=== PATIENT | male | born 1980 | race Caucasian/White ===

== ENCOUNTER 2018-09-16 11:19 | Outpatient (CLI) | payer BC ==
--- NOTE | 2018-09-16 12:15 | RAD ---
RIGHT KNEE 3 VIEWS: Date: 09/16/18 HISTORY: Knee pain. FINDINGS: There are no signs of fracture, dislocation, or joint effusion. IMPRESSION: Negative right knee. POS: CARLOS MANUEL
== END 2018-09-16 11:20 | disposition home or self-care (01) ==
LOC: BICRAD 11:19
PROVIDERS: ATTEND Family Medicine
DX: M25.561 Pain in right knee (principal)
CPT/HCPCS: 36415; 80053; 80061; 83036; 84439; 84443; 84550; 85025

== ENCOUNTER 2018-12-05 16:33 | Inpatient (IN) | payer BC ==
[2018-12-05] MEDS ORDERED: Iopamidol 370 76% 50 ML VIAL FS ONE (17:10)
[2018-12-05] MEDS ORDERED: ISOVUE-370 76%-LOCM 1 ML ONE (17:10)
[2018-12-05 17:16] LABS: #Basophils 0.1 thou/uL (0.0-0.2); #Eosinphils 0.2 thou/uL (0.0-0.7); #Lymphocytes 2.4 thou/uL (1.20-3.40); #Monocytes 0.7 thou/uL (0.11-0.59); #Neutrophils 10.4 thou/uL (1.40-6.50); %Basophils 0.5 % (0.0-1.0); %Eosinophils 1.3 % (0.0-10.0); %Lymphocytes 17.5 % (21.0-51.0); %Monocytes 4.9 % (0.0-10.0); %Neutrophils 75.8 % (42.0-75.0); Hemoglobin 14.9 g/dL (14.0-18.0); Mean Corpuscular HGB CONC 34.4 g/dL (32.0-36.0); Mean Corpuscular Hemoglobin 31.6 pg (27.0-31.0); Mean Corpuscular Volume 91.9 fL (78.0-98.0); Mean Platelet Volume 6.9 fL (7.4-10.4); Platelet Count 303 thou/uL (130-400); RBC Distribution Width 12.2 % (11.5-14.5); Red Blood Cell (RBC) Count 4.73 mill/uL (4.70-6.10); White Blood Cell (WBC) Count 13.8 thou/uL (4.8-10.8)
[2018-12-05 17:40] LABS: ALT (SGPT) 13 U/L (8-55); AST (SGOT) 23 U/L (5-34); Albumin 4.1 g/dL (3.5-5.0); Alkaline Phosphatase 61 U/L (40-150); Anion Gap 12 mmol/L (10-20); BUN (Urea Nitrogen) 11 mg/dL (8.9-20.6); Bilirubin, Total 0.8 mg/dL (0.2-1.2); Calc. Creatinine Clearance 0 mL/min (70-130); Calcium 10.2 mg/dL (7.8-10.44); Carbon Dioxide 28 mmol/L (22-29); Chloride 103 mmol/L (98-107); Estimated GFR-MDRD Greater than 90; Globulin 3.5 g/dL (2.4-3.5); Glucose 112 mg/dL (70-105); Lipase 16 U/L (8-78); Potassium 4.7 mmol/L (3.5-5.1); Protein, Total 7.6 g/dL (6.0-8.3); Sodium 138 mmol/L (136-145)
[2018-12-05 19:43] LABS: Bilirubin Negative (Negative); Blood, Urine Negative (Negative); Clarity CLEAR (Clear); Glucose, Urine (Dipstick) Negative (Negative); Leukocyte Negative (Negative); Nitrite Negative (Negative); Protein, Urine (Dipstick) Negative (Neg-Trace); Specific Gravity, Urine 1.019 (1.002-1.036); Urobilinogen 0.2 mg/dL (0.2-1.0)
[2018-12-05] MEDS ORDERED: Dicyclomine 20 MG TAB ONE (21:02)
[2018-12-05] MEDS ORDERED: Pantoprazole 40 MG VIAL ONE (21:02)
[2018-12-05] MEDS ORDERED: Ondansetron PF 4 MG/2 ML Vial ONE (21:02)
[2018-12-05] MEDS ORDERED: Metoclopramide HCl 10 MG/2 ML VIAL ONE (21:02)
--- NOTE | 2018-12-05 22:55 | CT ---
CT Abdomen Pelvis W Con History: [Abdominal pain] Comparison: CT abdomen pelvis November 2016 Findings: Lung bases are clear. No pericardial effusion. Spleen and pancreas unremarkable. Liver and gallbladder are unremarkable. There appears to be a polyp of the second portion of the duodenum axial image 38. There is a large ventral hernia containing both large bowel and small bowel. There is fluid within th e herniated sac. Small bowel proximal to this is dilated up to 3.5 cm. There is a diverticulum of the right lateral wall of the urinary bladder. No retroperitoneal adenopat hy. Kidneys unremarkable. 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 Impression: Large and small bowel containing ventral hernia with a large hiatus causing mild small talat wel obstruction. Surgical consultation advised. Small volume fluid within the large herniated sac.
[2018-12-06 00:09] LABS: PTT 28.4 SEC (22.9-36.1); Prothrombin Time 13.6 SEC (12.0-14.7)
[2018-12-06] MEDS ORDERED: Ondansetron PF 4 MG/2 ML Vial IVP PRN ×2 (04:03→19:33)
[2018-12-06] MEDS ORDERED: Acetaminophen 325 MG TAB PO PRN (04:03)
[2018-12-06] MEDS ORDERED: Ondansetron ODT 4 MG TAB SL PRN (04:03)
[2018-12-06 05:18] VITALS: BMI 52.9
[2018-12-06] MEDS: Sodium Chloride 0.9% 1,000 ML IV SCH ×2 (05:38→18:16)
[2018-12-06] MEDS ORDERED: traMADol HCl 50 MG TAB PO PRN ×2 (08:45)
--- NOTE | 2018-12-06 09:44 | CON ---
DATE OF CONSULTATION: 12/06/2018 CHIEF COMPLAINT: Small bowel obstruction. HISTORY OF PRESENT ILLNESS: This is a 38-year-old male with history of pulmonary embolism. He is now on Xarelto daily, who presents with a history of abdominal cramping, not associated with nausea or vomiting. He had mild anorexia. He has had bowel movements including last night after oral contrast for CAT scan. His cramping has resolved. He has a history of laparoscopic umbilical hernia repair 7 or 8 years ago in [place], [place], that recurred almost immediately. He now presents with large recurrent ventral hernia in the setting of CT scan showing partial obstruction and bowel and colon up in this hernia. The patient now describes 2 days of cramping pain, although it has completely resolved. He has had bowel movement this morning. He is hungry. No nausea. PAST MEDICAL HISTORY: Pulmonary embolism. PAST SURGICAL HISTORY: As above. MEDICATIONS: Medicines taken daily, Xarelto. ALLERGIES: CODEINE. SOCIAL HISTORY: No smoking, alcohol, or other drugs. He works at [employer]. REVIEW OF SYSTEMS: Ten-system review of systems otherwise negative unless described above. PHYSICAL EXAMINATION: VITAL SIGNS: Pulse 69, respirations 18, temperature 97.8, and blood pressure 113/76. GENERAL: Alert and oriented, in no acute distress. HEENT: Sclerae anicteric. Oropharynx clear. NECK: No lymphadenopathy. CHEST: Clear. HEART: Regular rate and rhythm. ABDOMEN: Soft. He has large incisional hernia with loss of domain in the umbilical region. He has a large pannus as his abdomen is quite protuberant and the hernias within this. LABORATORY DATA: White blood cell count was 13 last night and hemoglobin 14. Sodium 138, creatinine 0.82, and potassium 4.7. IMAGING STUDIES: CT scan shows likely chronic changes from large and small bowel in this ventral hernia. ASSESSMENT: 1. Incisional/ventral hernia recurrence. 2. Morbid obesity. 3. History of pulmonary embolism on Xarelto. PLAN: I do not think this represents necessarily small bowel obstruction. He is clinically not acting like that. I recommend clear liquids today. If he tolerates that, he could probably go home tomorrow. I would recommend he follow up with me as an outpatient in a few weeks to discuss elective hernia repair, would not do it now in the setting of this dilated small intestine. He will need component separation repair of this hernia in order to prevent future recurrences. Job ID: [id number]
[2018-12-06] MEDS ORDERED: Rivaroxaban 10 MG TAB PO SCH (17:00)
--- NOTE | 2018-12-07 03:05 | HP ---
CHIEF COMPLAINT: Abdominal pain. HISTORY OF PRESENT ILLNESS: The patient is a very pleasant 38-year-old male with past medical history of pulmonary embolism, is currently on Xarelto, who came into the hospital with sudden onset of abdominal pain. The patient stated that he was working at [employer] when he felt abdominal cramping that was intermittent in nature. He tried to have a bowel movement, however, had a small bowel movement. However, his pain did not improve with having a bowel movement. Denies any nausea, any fevers or chills. PAST MEDICAL HISTORY: He has had a history of PE and he has a history of sleep apnea. REVIEW OF SYSTEMS: All negative except for the ones mentioned above in the HPI. PAST SURGICAL HISTORY: He has hernia 7 years ago and he has also had adenoids removed. SOCIAL HISTORY: He denies any alcohol use, drug use, or smoking history. He lives alone and he is a full code. ALLERGIES: HE IS ALLERGIC TO CODEINE AND SULFATE. MEDICATIONS: Xarelto 20 mg at bedtime. PHYSICAL EXAMINATION: VITAL SIGNS: As of the following; temperature of 98.8, heart rate of 70, saturation 97% on room air, blood pressure 118/77. GENERAL: He is awake, alert, and oriented x3. Does not appear in any distress. CV: S1, S2 present. No murmurs, rubs, or gallops. HEENT: Normocephalic, atraumatic. No lymphadenopathy noted. Pupils are equal and reactive to light. ABDOMEN: Soft. Bowel sounds are present x2. He has a very large hernia noticeable on his right lower abdominal area. No pain upon palpation. LUNGS: Clear to auscultation. No rhonchi or wheezes noted. EXTREMITIES: Lower extremity, no edema. NEUROVASCULAR: No focal deficits noted. SKIN: No cuts, lesions, or bruises noted. LABORATORY RESULTS: The patient did have a CT of abdomen and pelvis which indicated large and small bowel containing ventral hernia with a large hiatus causing mild small bowel obstructions. Other laboratory findings; WBC of 13.8, hemoglobin of 14.9, hematocrit of 43.4, platelets of 303. Chemistry; sodium of 138, potassium 4.7, BUN of 11, creatinine of 0.82. ASSESSMENT AND PLAN: The patient is a very pleasant 38-year-old male who presents to the hospital with complaints of abdominal pain. 1. Abdominal pain, most likely secondary to concerns for large and small bowel containing ventral hernia, possible small bowel obstruction. Surgery has been consulted. The patient currently is on clear liquids. I did speak with surgery who recommended just to advance diet and see how the patient tolerates. The patient will require outpatient consultation with the surgeon once he is discharged for a possible scheduled surgery for his large hernia. We will continue Xarelto, which was okayed by the surgeon, given his history of pulmonary embolism. The patient states that he has had pulmonary embolism x2, however, he stated the 1st time when he was diagnosed with pulmonary emboli, he took his medications only for 2 or 3 months and then stopped it. At this time, he developed the symptoms of shortness of breath again at which time, he was rescanned, which is unclear, either new pulmonary embolism or the residual pulmonary embolism. At that time, he was prescribed his anticoagulations again, this is per patient. 2. History of sleep apnea. The patient does have a CPAP machine. 3. Obesity. Recommended diet and exercise. 4. Deep venous thrombosis prophylaxis, the patient is already on Xarelto. If he is able to tolerate his meals tomorrow, per Surgery possible discharge home. Job ID: [id number]
[2018-12-07] MEDS: Sodium Chloride 0.9% 1,000 ML IV SCH (09:12)
[2018-12-07 11:55] VITALS: BP 134/81; TEMP 98.1
--- NOTE | 2018-12-07 13:01 | PDOC.GSPN ---
Surgery Progress Note: Subj - Subjective Patient reports: feels better, tolerating a regular diet Surgery Progress Note: Obj - Vital signs Vital signs: Vital Signs - Most Recent Temp Pulse Resp BP Pulse Ox 98.1 F 72 20 134/81 97 12/07/18 11:32 12/07/18 11:32 12/07/18 11:32 12/07/18 11:32 12/07/18 11:32 - Physical Exam General: no distress Respiratory: clear to auscultation Abdomen: soft, non tender, nondistended Surgery Progress Note: Results - Labs Result Diagrams: 12/05/18 16:52 12/05/18 16:52 Surgery Progress Note: A/P - Problem (1) Incisional hernia Current Visit: Yes Code(s): K43.2 - INCISIONAL HERNIA WITHOUT OBSTRUCTION OR GANGRENE Status: Acute - Plan Plan: Non incarcerated -DC today -f/u me in a few weeks to discuss definitive repair
== END 2018-12-07 14:22 | disposition home or self-care (01) | DRG 394 ==
LOC: ERS 16:33 → SURG A 12-06 03:56
PROVIDERS: ADMIT Internal Medicine; ATTEND Internal Medicine
DX: K43.2 Incisional hernia without obstruction or gangrene (principal); Z68.43 Body mass index [BMI] 50.0-59.9, adult; G47.30 Sleep apnea, unspecified; E66.01 Morbid (severe) obesity due to excess calories; Z88.2 Allergy status to sulfonamides; Z86.711 Personal history of pulmonary embolism; Z88.5 Allergy status to narcotic agent; Z79.01 Long term (current) use of anticoagulants
CPT/HCPCS: 36415; 74177; 80053; 81003; 83690; 84484; 85025; 85610; 85730; 93005; 94660; 96365; 96366; 96375; C9113; J2405; J2765; Q9966; Q9967

== ENCOUNTER 2019-03-21 10:34 | Outpatient (CLI) | payer BC ==
[2019-03-21 12:20] LABS: #Basophils 0.1 thou/uL (0.0-0.2); #Eosinphils 0.5 thou/uL (0.0-0.7); #Lymphocytes 2.3 thou/uL (1.20-3.40); #Monocytes 0.5 thou/uL (0.11-0.59); #Neutrophils 5.9 thou/uL (1.40-6.50); %Eosinophils 5.1 % (0.0-10.0); %Lymphocytes 24.9 % (21.0-51.0); %Monocytes 5.8 % (0.0-10.0); %Neutrophils 63.3 % (42.0-75.0); Hemoglobin 14.7 g/dL (14.0-18.0); Mean Corpuscular HGB CONC 33.3 g/dL (32.0-36.0); Mean Corpuscular Hemoglobin 30.2 pg (27.0-31.0); Mean Corpuscular Volume 90.9 fL (78.0-98.0); Mean Platelet Volume 7.2 fL (7.4-10.4); Platelet Count 243 thou/uL (130-400); RBC Distribution Width 12.3 % (11.5-14.5); Red Blood Cell (RBC) Count 4.85 mill/uL (4.70-6.10); White Blood Cell (WBC) Count 9.4 thou/uL (4.8-10.8)
[2019-03-21 12:41] LABS: Anion Gap 13 mmol/L (10-20); BUN (Urea Nitrogen) 12 mg/dL (8.9-20.6); Calc. Creatinine Clearance 0 mL/min (70-130); Calcium 9.3 mg/dL (7.8-10.44); Carbon Dioxide 23 mmol/L (22-29); Chloride 108 mmol/L (98-107); Estimated GFR-MDRD Greater than 90; Glucose 95 mg/dL (70-105); Sodium 140 mmol/L (136-145)
== END 2019-03-21 10:35 | disposition home or self-care (01) ==
LOC: LABBT 10:34
PROVIDERS: ATTEND Surgery
DX: Z01.812 Encounter for preprocedural laboratory examination (principal); K43.2 Incisional hernia without obstruction or gangrene
CPT/HCPCS: 80048; 85025

== ENCOUNTER 2019-03-22 11:10 | Observation (INO) | payer BC ==
[2019-03-22] MEDS ORDERED: PROPOFOL 200 MG/20 ML VIAL ONE (11:14)
[2019-03-22] MEDS ORDERED: Ketorolac Tromethamine 30 MG/ML VIAL ONE (11:14)
[2019-03-22] MEDS ORDERED: Rocuronium Bromide 10 MG/ML (10ML VIAL) ONE (11:14)
[2019-03-22] MEDS ORDERED: Lidocaine 1% PF 5 ML VIAL ONE (11:14)
[2019-03-22] MEDS ORDERED: Glycopyrrolate 0.2 MG/ML 5 ML SYRINGE ONE (11:14)
[2019-03-22] MEDS ORDERED: Dexamethasone 20 MG/5 ML VIAL ONE (11:14)
[2019-03-22] MEDS ORDERED: Ondansetron PF 4 MG/2 ML Vial ONE (11:14)
[2019-03-22] MEDS ORDERED: Bupivacaine/Epinephrine 0.25% 30 ML VIAL ONE (12:38)
[2019-03-22] MEDS ORDERED: Fentanyl 100 MCG/2 ML VIAL ONE ×2 (13:38→15:59)
[2019-03-22] MEDS ORDERED: Ketamine 50 MG/ML (10ML VIAL) ONE (13:39)
[2019-03-22] MEDS ORDERED: Ondansetron HCl/PF 4 MG/2 ML Vial IVP PRN (16:20)
[2019-03-22] MEDS ORDERED: Promethazine HCl 25 MG/ML VIAL IM PRN ×2 (16:20→16:26)
[2019-03-22] MEDS ORDERED: Promethazine HCl 25 MG/ML VIAL SLOW IVP PRN (16:20)
[2019-03-22] MEDS ORDERED: Dextrose 50% Abboject 50 ML SYRINGE SLOW IVP PRN (16:26)
[2019-03-22] MEDS ORDERED: hydrALAZINE 20 MG/ML VIAL SLOW IVP PRN (16:26)
[2019-03-22] MEDS ORDERED: Morphine 4 MG/ML VIAL SLOW IVP PRN (16:26)
[2019-03-22] MEDS ORDERED: Dextrose 5% in Water 1,000 ML IV PRN (16:26)
[2019-03-22] MEDS ORDERED: traMADol HCl 50 MG TAB PO PRN ×2 (16:26)
[2019-03-22] MEDS ORDERED: Ondansetron PF 4 MG/2 ML Vial IVP PRN (16:26)
--- NOTE | 2019-03-22 17:44 | OP ---
DATE OF PROCEDURE: 03/22/2019 PREOPERATIVE DIAGNOSIS: Incisional hernia. POSTOPERATIVE DIAGNOSES: 1. Incisional hernia. 2. Iatrogenic small bowel injury. PROCEDURES PERFORMED: Diagnostic laparoscopic reduction of hernia and lysis of adhesions, repair of small-bowel injury. ANESTHESIA: General. ESTIMATED BLOOD LOSS: 50 mL. COMPLICATIONS: Small bowel torn taking down the adhesions. Decision was made to abort the hernia repair and repair of the small bowel, come back on a different day for mesh placement. DESCRIPTION OF PROCEDURE: The patient was taken to the operating room and laid supine on the operating room table. After general anesthetic was obtained, his abdomen was shaved, prepped, and draped in a sterile fashion. A Howard catheter had been placed. Left subcostal 5 mm Optiview trocar was placed in usual fashion and high-flow pneumoperitoneum was obtained. Left and right abdominal 8 mm robot trocars were placed. All ports were docked to the robot. The patient had extensive adhesions due to his previous mesh placement. These were all taken down fairly easily to the area of the incisional hernia. The large loop of sigmoid colon was in the hernia, this was reducible. There were a few loops of small intestine around the hernia that were difficult to reduce. There were dense adhesions in the area of previous mesh. There was an iatrogenic injury to the small bowel that was stuck in the wound. At this point, decision was made not to continue and not to place mesh. The small bowel was repaired using a full thickness 2-0 Vicryl followed by serosal 2-0 Vicryl. It appeared to close the injury without any further leakage. There was minimal contamination. There was minimal ongoing bleeding. There were no other obvious injuries in the entire examined abdomen. There was a residual small loop of the lower sigmoid colon fused to the posterior skin and the hernia as well as a one loop of small intestine that went up and was fused to the skin. These will have to be addressed at a later procedure. All instruments, needle counts, and lap counts were correct. The needle was placed in the abdomen for a small bowel repair was removed and accounted for. The wounds were all closed using 4-0 Monocryl and Dermabond. The patient was sent to Recovery in stable condition. All instrument counts, needle counts, and lap counts were correct. Job ID: [id number]
[2019-03-22] MEDS: Sodium Chloride 0.9% 1,000 ML IV SCH ×2 (17:49→19:58)
[2019-03-22 18:05] VITALS: BMI 37.5
[2019-03-22] MEDS: Famotidine/PF 20 mg/2ml Vial SLOW IVP SCH (19:57)
[2019-03-22] MEDS: Famotidine 20 MG TAB PO SCH (20:03)
[2019-03-22] MEDS: HYDROcodone/Acetaminophen 10/325 mg Tablet PO PRN (23:02)
[2019-03-23 06:13] LABS: #Lymphocytes 1.3 thou/uL (1.20-3.40); #Monocytes 0.6 thou/uL (0.11-0.59); #Neutrophils 10.4 thou/uL (1.40-6.50); %Basophils 0.2 % (0.0-1.0); %Eosinophils 0.2 % (0.0-10.0); %Lymphocytes 10.7 % (21.0-51.0); %Monocytes 4.9 % (0.0-10.0); Hemoglobin 13.7 g/dL (14.0-18.0); Mean Corpuscular HGB CONC 32.7 g/dL (32.0-36.0); Mean Corpuscular Hemoglobin 30.2 pg (27.0-31.0); Mean Corpuscular Volume 92.6 fL (78.0-98.0); Mean Platelet Volume 7.7 fL (7.4-10.4); Platelet Count 242 thou/uL (130-400); Red Blood Cell (RBC) Count 4.52 mill/uL (4.70-6.10); White Blood Cell (WBC) Count 12.4 thou/uL (4.8-10.8)
[2019-03-23] MEDS: Sodium Chloride 0.9% 1,000 ML IV SCH (08:14)
[2019-03-23] MEDS: Famotidine 20 MG TAB PO SCH (08:17)
[2019-03-23 09:22] VITALS: TEMP 98.2
[2019-03-23] MEDS: HYDROcodone/Acetaminophen 10/325 mg Tablet PO PRN ×2 (10:21→15:28)
[2019-03-23 12:18] VITALS: BP 144/81
[2019-03-23] MEDS: Famotidine/PF 20 mg/2ml Vial SLOW IVP SCH (15:33)
--- NOTE | 2019-03-24 01:45 | DIS ---
DATE OF ADMISSION: 03/22/2019 DATE OF DISCHARGE: 03/23/2019 ADMISSION DIAGNOSIS: Incisional hernia. DISCHARGE DIAGNOSIS: Incisional hernia. PROCEDURE PERFORMED: Laparoscopic lysis of adhesions and repair of small bowel by Arnel with iatrogenic injury to small bowel corrected. Decision made not to place mesh. CONDITION ON DISCHARGE: Improved. STAFF: Kranthi Seals MD HOSPITAL COURSE: On postop day 1, the patient is doing well. He is tolerating liquid. He is discharged home. He will continue all his medications as before including Xarelto. He will not take the Xarelto on Wednesday for surgery on Wednesday. Job ID: [id number]
== END 2019-03-23 15:30 | disposition home or self-care (01) ==
LOC: SDC 11:10 → SURG B 17:23
PROVIDERS: ADMIT Surgery; ATTEND Surgery
PROC: 0WQF4ZZ Repair Abdominal Wall, Percutaneous Endoscopic Approach (ICD-10-PCS; principal; 2019-03-23)
DX: K43.2 Incisional hernia without obstruction or gangrene (principal); S36.408A Unspecified injury of other part of small intestine, initial encounter; K66.0 Peritoneal adhesions (postprocedural) (postinfection); Z79.01 Long term (current) use of anticoagulants; Z88.5 Allergy status to narcotic agent; Z99.89 Dependence on other enabling machines and devices
CPT/HCPCS: 36415; 85025; G0378; J0690; J1100; J1885; J2001; J2405; J2704; J3010

== ENCOUNTER 2019-03-27 10:36 | Inpatient (IN) | payer BC ==
[2019-03-24 13:15] VITALS: BMI 50.8
[2019-03-27] MEDS ORDERED: Bupivacaine/Epinephrine 0.25% 30 ML VIAL ONE (11:43)
[2019-03-27] MEDS ORDERED: Fentanyl 100 MCG/2 ML VIAL ONE ×2 (12:07→15:51)
[2019-03-27] MEDS ORDERED: Vecuronium 10 MG VIAL ONE (13:50)
[2019-03-27] MEDS ORDERED: Rocuronium Bromide 10 MG/ML (10ML VIAL) ONE (13:50)
[2019-03-27] MEDS ORDERED: Glycopyrrolate 0.2 MG/ML 5 ML SYRINGE ONE (13:50)
[2019-03-27] MEDS ORDERED: Ondansetron PF 4 MG/2 ML Vial ONE (13:50)
[2019-03-27] MEDS ORDERED: Ketorolac Tromethamine 30 MG/ML VIAL ONE ×2 (13:50→15:30)
[2019-03-27] MEDS ORDERED: Lidocaine 1% PF 5 ML VIAL ONE (13:50)
[2019-03-27] MEDS ORDERED: PROPOFOL 200 MG/20 ML VIAL ONE (13:50)
[2019-03-27] MEDS ORDERED: Promethazine HCl 25 MG/ML VIAL SLOW IVP PRN (15:41)
[2019-03-27] MEDS ORDERED: Ondansetron HCl/PF 4 MG/2 ML Vial IVP PRN (15:41)
[2019-03-27] MEDS ORDERED: HYDROmorphone 2 MG/ML VIAL SLOW IVP PRN (15:41)
[2019-03-27] MEDS ORDERED: Promethazine HCl 25 MG/ML VIAL IM PRN ×3 (15:41→16:11)
[2019-03-27] MEDS ORDERED: PACU-Morphine 4MG/ML VIAL SLOW IVP PRN (15:41)
[2019-03-27] MEDS ORDERED: Dextrose 5% in Water 1,000 ML IV PRN (16:03)
[2019-03-27] MEDS ORDERED: Dextrose 50% Abboject 50 ML SYRINGE SLOW IVP PRN (16:03)
[2019-03-27] MEDS ORDERED: hydrALAZINE 20 MG/ML VIAL SLOW IVP PRN (16:03)
[2019-03-27] MEDS ORDERED: Ondansetron PF 4 MG/2 ML Vial IVP PRN ×2 (16:03→16:11)
[2019-03-27] MEDS ORDERED: Naloxone HCl 0.4 mg/ml Vial IV PRN (16:11)
[2019-03-27] MEDS ORDERED: diphenhydrAMINE 25 MG CAP PO PRN (16:11)
[2019-03-27] MEDS ORDERED: diphenhydrAMINE 50 MG/ML VIAL IVP PRN (16:11)
[2019-03-27] MEDS ORDERED: Zolpidem Tartrate 5 MG TAB PO PRN (16:11)
[2019-03-27] MEDS ORDERED: diphenhydrAMINE 50 MG/ML VIAL IM PRN (16:11)
[2019-03-27] MEDS ORDERED: fentaNYL Citrate/PF 2,000 MCG in Sodium Chloride 0.9% 60 ML IV PRN (16:11)
[2019-03-27] MEDS ORDERED: Communication Order-Pharmacy FS SCH (16:15)
[2019-03-27] MEDS: Sodium Chloride 0.9% 1,000 ML IV SCH (18:14)
[2019-03-27] MEDS: CEFAZOLIN 2 GM in Premix Bag 1 BAG IVPB SCH (18:18)
[2019-03-27] MEDS: Enoxaparin Sodium 40 MG/0.4 ML SYRINGE SC SCH (21:14)
[2019-03-27] MEDS: Famotidine 20 MG TAB PO SCH (21:14)
[2019-03-27] MEDS: Famotidine/PF 20 mg/2ml Vial SLOW IVP SCH (21:14)
--- NOTE | 2019-03-27 21:22 | OP ---
DATE OF PROCEDURE: 03/27/2019 PREOPERATIVE DIAGNOSIS: Incisional hernia. POSTOPERATIVE DIAGNOSIS: Incisional hernia. PROCEDURE PERFORMED: Incisional hernia repair with mesh let in by 14 cm Ventralex. ANESTHESIA: General. ESTIMATED BLOOD LOSS: 50 mL. COMPLICATIONS: None. FINDINGS: Incisional hernia. TECHNIQUE: The operating was taken to the operating room and laid supine on the operating room table. After general anesthetic was obtained, the Howard was placed. The abdomen was shaved, prepped, and draped in a sterile fashion. The patient had a very large incisional hernia within his pannus of his lower abdomen. The patient is morbidly overweight. Transverse incision was made in order to ellipse out the whole umbilical area, where the skin is so far stretched. Flaps were raised down to the fascia circumferentially around the defect. The defect itself is only about 8 cm in greatest diameter. The hernia sac was entered. There was significant scarring of the colon and intestine to the posterior umbilical skin very carefully. This was all dissected down. Some of the omentum is left on the hernia sac. The Impact LigaSure was used for a lot of dissection secondary to the large blood vessels. There was no obvious damage to the small intestine or colon in this area. Finally with the skin at the umbilicus, was able to be remove with some of the omentum. The abdominal contents were able to be reduced back into the abdominal cavity. The hernia sac was debrided at the level of the fascia. An 11 x 14 cm skirted mesh was brought in and placed in an underlay fashion. The skirt of the mesh was sewn via U-stitches of Prolene circumferentially to the posterior abdominal wall. The anterior fascia was closed using #1 PDS. The subcutaneous tissues were irrigated copiously using sterile solution. Meticulous hemostasis was obtained. Two 19 round drains were brought out through separate stab incision, sewn in place using 2-0 silk. The subcutaneous tissues closed with multiple interrupted Vicryl sutures. The skin was closed using running 4-0 Monocryl and Dermabond. The patient was sent to Recovery in stable condition. All instrument counts, needle counts, and lap counts were correct. Job ID: [id number]
[2019-03-28] MEDS: CEFAZOLIN 2 GM in Premix Bag 1 BAG IVPB SCH ×3 (03:38→18:34)
--- NOTE | 2019-03-28 07:35 | PDOC.GSPN ---
Surgery Progress Note: Subj - Subjective Narrative: Mr. Stallworth is a 38 year old male post op day 1 following open incisional hernia with mesh. He decribes 4/10 soreness at the incisional site today but is otherwise doing well. He is tolerating clear liquids. He has not yet had a bowel movement and does not think he has passed gas. He has not ambulated much since surgery, as he does not want to do anything to damage the surgical site. He denies nausea, vomiting. Surgery Progress Note: Obj - Vital signs Vital signs: Vital Signs - Most Recent Temp Pulse Resp BP Pulse Ox 97.8 F 74 16 134/82 95 03/28/19 04:26 03/28/19 04:26 03/28/19 04:26 03/28/19 04:03/28/19 04:26 - Physical Exam General: no distress Cardiovascular: regular rate and rhythm Respiratory: clear to auscultation Abdomen: soft, positive bowel sounds, appropriately tender Wound: healing well Surgery Progress Note: A/P - Problem (1) Incisional hernia Current Visit: No Code(s): K43.2 - INCISIONAL HERNIA WITHOUT OBSTRUCTION OR GANGRENE Status: Acute - Plan Plan: Mr. Stallworth is a 38 year old male post op day 1 following an open incisional hernia with mesh. 1. 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 Consider switching to oral pain medication 2. Advance diet as tolerated 3. Encourage ambulation, potentially with support of PT Addendum - Physician - Physician Attestation Date/Time: 03/28/19 [id number] I personally performed or re-performed the physical examination and medical decision making. I have verified all student documentation or findings, including history, physical exam and/or medical decision making. Doing well pod 1. advance to fulls. He needs to ambulate today. Will add PT. Restart xarelto tomorrow.
[2019-03-28] MEDS ORDERED: Sodium Chloride 0.9% 1,000 ML IV SCH (08:38)
[2019-03-28] MEDS: Famotidine 20 MG TAB PO SCH ×2 (09:04→20:33)
[2019-03-28] MEDS: Famotidine/PF 20 mg/2ml Vial SLOW IVP SCH ×2 (09:04→21:49)
[2019-03-28] MEDS: Sodium Chloride 0.9% 1,000 ML IV SCH (13:47)
[2019-03-28] MEDS: Acetaminophen 500 MG TAB PO SCH ×2 (15:28→20:33)
[2019-03-28] MEDS: Enoxaparin Sodium 40 MG/0.4 ML SYRINGE SC SCH (20:33)
[2019-03-29] MEDS: CEFAZOLIN 2 GM in Premix Bag 1 BAG IVPB SCH ×3 (02:18→18:39)
[2019-03-29] MEDS: Acetaminophen 500 MG TAB PO SCH ×2 (03:45→08:16)
--- NOTE | 2019-03-29 07:27 | PDOC.GSPN ---
Surgery Progress Note: Subj - Subjective Narrative: Mr. Stallworth is a 38 year old male post op day 2 following open incisional hernia with mesh. He decribes 1/10 soreness at the incisional site today but is otherwise doing well. 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 He has been tolerating full liquid diet well. He has passed gas but has not yet had a bowel movement. His reyes catheter was removed yesterday and he has had no difficulty voiding. PT came by yesterday and they did some laps in the west. He can ambulate to the restroom on his own. He had one episode of nausea following removal of the reyes catheter, but denies any nausea, vomiting since then. Surgery Progress Note: Obj - Vital signs Vital signs: Vital Signs - Most Recent Temp Pulse Resp BP Pulse Ox 98.7 F 81 16 142/89 H 94 L 03/29/19 04:00 03/29/19 04:00 03/29/19 04:00 03/29/19 04:00 03/29/19 04:00 - Physical Exam General: no distress Cardiovascular: regular rate and rhythm Respiratory: clear to auscultation Abdomen: soft, nondistended, positive bowel sounds, appropriately tender Wound: healing well (slight erythema at incision site) Surgery Progress Note: Results - Labs Result Diagrams: 03/29/19 05:30 Lab results: Laboratory Results - last 24 hr 03/29/19 05:30 Hgb 12.0 L Surgery Progress Note: A/P - Problem (1) Incisional hernia Current Visit: No Code(s): K43.2 - INCISIONAL HERNIA WITHOUT OBSTRUCTION OR GANGRENE Status: Acute - Plan Plan: Mr. Stallworth is a 38 year old male post op day 2 following open incisional hernia with mesh. 1. 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 Consider switching to oral pain medication when appropriate 2. Advance diet as tolerated 3. Encourage ambulation. Continue PT support Addendum - Physician - Physician Attestation Date/Time: 03/29/19 6158 I personally performed or re-performed the physical examination and medical decision making. I have verified all student documentation or findings, including history, physical exam and/or medical decision making. Advance diet. Home tomorrow
[2019-03-29] MEDS: Famotidine/PF 20 mg/2ml Vial SLOW IVP SCH ×2 (08:16→20:37)
[2019-03-29] MEDS: Famotidine 20 MG TAB PO SCH ×2 (08:16→20:35)
[2019-03-29] MEDS ORDERED: HYDROcodone/Acetaminophen 10/325 mg Tablet PO PRN ×2 (10:13)
[2019-03-29] MEDS ORDERED: Acetaminophen 500 MG TAB PO PRN (10:15)
[2019-03-29] MEDS: Rivaroxaban 10 MG TAB PO SCH (11:10)
[2019-03-29] MEDS ORDERED: traMADol HCl 50 MG TAB PO PRN ×2 (11:47)
[2019-03-30] MEDS: CEFAZOLIN 2 GM in Premix Bag 1 BAG IVPB SCH ×2 (03:32→09:16)
--- NOTE | 2019-03-30 07:36 | PDOC.GSPN ---
Surgery Progress Note: Subj - Subjective Narrative: Mr. Stallworth is a 38 year old male post op day 3 following open incisional hernia with mesh. He is doing well this AM. 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 He rates the pain in his abdomen as 1/10, if any. Yesterday he was able to eat a soft diet and tolerated it well. He has been passing gas but has not yet had a bowel movement. He has had no difficulty voiding. He did laps in the west with PT and walked a lap on his own. He denies any nausea, vomiting. Surgery Progress Note: Obj - Vital signs Vital signs: Vital Signs - Most Recent Temp Pulse Resp BP Pulse Ox 98.0 F 88 16 121/82 94 L 03/30/19 04:54 03/30/19 04:54 03/30/19 04:54 03/30/19 04:54 03/30/19 04:54 - Physical Exam General: no distress Cardiovascular: regular rate and rhythm Respiratory: clear to auscultation Abdomen: soft, nondistended, positive bowel sounds, appropriately tender Wound: healing well (abdomen is slightly erythematous) Surgery Progress Note: Results - Labs Result Diagrams: 03/29/19 05:30 Surgery Progress Note: A/P - Problem (1) Incisional hernia Current Visit: No Code(s): K43.2 - INCISIONAL HERNIA WITHOUT OBSTRUCTION OR GANGRENE Status: Acute - Plan Plan: Mr. Stallworth is a 38 year old male post op day 3 following open incisional hernia with mesh. 1. Continue oral pain medication as needed 2. Advance diet 3. Encourage ambulation 4. Anticipate discharge today Addendum - Physician - Physician Attestation Date/Time: 03/30/19 0812 I personally performed or re-performed the physical examination and medical decision making. I have verified all student documentation or findings, including history, physical exam and/or medical decision making. DC Note: post op dx incisional hernia stable f/u 1 weeks
[2019-03-30] MEDS: Rivaroxaban 10 MG TAB PO SCH (09:18)
[2019-03-30] MEDS: Famotidine/PF 20 mg/2ml Vial SLOW IVP SCH (09:18)
[2019-03-30] MEDS: Famotidine 20 MG TAB PO SCH (09:18)
[2019-03-30 12:07] VITALS: BP 115/72; TEMP 98.3
== END 2019-03-30 14:18 | disposition home or self-care (01) | DRG 354 ==
LOC: SDC 10:36 → SURG B 15:51
PROVIDERS: ADMIT Surgery; ATTEND Surgery
PROC: 0WUF0JZ Supplement Abdominal Wall with Synthetic Substitute, Open Approach (ICD-10-PCS; principal; 2019-03-27)
DX: K43.2 Incisional hernia without obstruction or gangrene (principal); Z68.43 Body mass index [BMI] 50.0-59.9, adult; E66.01 Morbid (severe) obesity due to excess calories; Z88.5 Allergy status to narcotic agent; I10 Essential (primary) hypertension; Z86.711 Personal history of pulmonary embolism
CPT/HCPCS: 36415; 85018; J0690; J1650; J1885; J2001; J2405; J2704; J3010; J3490

== ENCOUNTER 2021-01-10 22:55 | Emergency (ER) | payer BC ==
[2021-01-11] MEDS ORDERED: Sucralfate 1 GM/10 ML UDCUP ONE (01:21)
[2021-01-11 01:51] LABS: #Basophils 0.1 thou/uL (0.0-0.2); #Eosinphils 0.3 thou/uL (0.0-0.7); #Monocytes 0.6 thou/uL (0.11-0.59); #Neutrophils 13.3 thou/uL (1.40-6.50); %Basophils 0.5 % (0.0-1.0); %Eosinophils 1.6 % (0.0-10.0); %Lymphocytes 12.1 % (21.0-51.0); %Monocytes 3.6 % (0.0-10.0); %Neutrophils 82.2 % (42.0-75.0); ALT (SGPT) 21 U/L (8-55); AST (SGOT) 35 U/L (5-34); Albumin 4.2 g/dL (3.5-5.0); Alkaline Phosphatase 63 U/L (40-110); Anion Gap 13 mmol/L (10-20); BUN (Urea Nitrogen) 15 mg/dL (8.9-20.6); Bilirubin, Total 0.9 mg/dL (0.2-1.2); Calc. Creatinine Clearance 0 mL/min (70-130); Calcium 9.6 mg/dL (7.8-10.44); Carbon Dioxide 24 mmol/L (22-29); Chloride 104 mmol/L (98-107); Globulin 3.9 g/dL (2.4-3.5); Glucose 135 mg/dL (70-105); Lipase 17 U/L (8-78); Mean Corpuscular HGB CONC 33.4 g/dL (32.0-36.0); Mean Corpuscular Hemoglobin 30.8 pg (27.0-31.0); Mean Corpuscular Volume 92.4 fL (78.0-98.0); Mean Platelet Volume 6.8 fL (7.4-10.4); Platelet Count 349 thou/uL (130-400); Potassium 4.6 mmol/L (3.5-5.1); Protein, Total 8.1 g/dL (6.0-8.3); RBC Distribution Width 11.9 % (11.5-14.5); Red Blood Cell (RBC) Count 5.18 mill/uL (4.70-6.10); Sodium 136 mmol/L (136-145); White Blood Cell (WBC) Count 16.2 thou/uL (4.8-10.8)
[2021-01-11 02:48] LABS: Bilirubin Negative (Negative); Blood, Urine Negative (Negative); Glucose, Urine (Dipstick) Negative (Negative); Ketone, Urine Negative (Negative); Leukocyte Negative (Negative); Nitrite Negative (Negative); Protein, Urine (Dipstick) Negative (Neg-Trace); Urobilinogen 0.2 mg/dL (Less than 2); pH, Urine 5.5 (5.0-9.0)
[2021-01-11 02:49] LABS: Bacteria/HPF None Seen HPF (None Seen); Clarity c (Clear); Squamous Epithelial 0-3 HPF (0-3)
[2021-01-11 02:52] LABS: Specific Gravity, Urine 1.032 (1.002-1.036)
[2021-01-11] MEDS ORDERED: Morphine 4 MG/ML VIAL ONE (03:56)
[2021-01-11] MEDS ORDERED: Ondansetron PF 4 MG/2 ML Vial ONE (03:56)
== END 2021-01-11 04:15 | disposition home or self-care (01) ==
LOC: ERS 22:55
DX: R10.84 Generalized abdominal pain (principal); R19.7 Diarrhea, unspecified; E66.9 Obesity, unspecified; D72.829 Elevated white blood cell count, unspecified
CPT/HCPCS: 36415; 80053; 81003; 83690; 85025; 96372; 96374; 96375; J0500; J2270; J2405

== ENCOUNTER 2021-01-23 11:18 | Outpatient (CLI) | payer BC ==
[2021-01-23 12:46] LABS: #Basophils 0.1 10x3/uL (0.0-0.2); #Eosinphils 0.5 10x3/uL (0.0-0.5); #Monocytes 0.5 10x3/uL (0.0-1.1); #Neutrophils 5.1 10x3/uL (1.5-8.4); %Basophils 0.7 % (0.0-2.0); %Eosinophils 5.3 % (0.0-6.0); %Lymphocytes 27.9 % (18.0-47.0); %Monocytes 6.3 % (0.0-10.0); %Neutrophils 59.5 % (40.0-75.0); Hemoglobin 14.7 g/dL (13.5-17.5); Mean Corpuscular HGB CONC 34.6 g/dL (32.0-36.0); Mean Corpuscular Hemoglobin 30.9 pg (27.0-33.0); Mean Corpuscular Volume 89.5 fl (81.2-95.1); Mean Platelet Volume 9.5 fl (7.4-10.4); Platelet Count 299 10x3/uL (150-450); RBC Distribution Width 12.4 % (11.5-14.5); Red Blood Cell (RBC) Count 4.75 10x6/uL (4.32-5.72); White Blood Cell (WBC) Count 8.6 10x3/uL (3.5-10.5)
[2021-01-23 12:56] LABS: Anion Gap 15 mmol/L (10-20); BUN (Urea Nitrogen) 12 mg/dL (8.9-20.6); Calc. Creatinine Clearance 0 mL/min (70-130); Calcium 9.6 mg/dL (7.8-10.44); Carbon Dioxide 24 mmol/L (22-29); Chloride 106 mmol/L (98-107); Glucose 89 mg/dL (70-105); Potassium 4.5 mmol/L (3.5-5.1); Sodium 140 mmol/L (136-145)
== END 2021-01-23 11:19 | disposition home or self-care (01) ==
LOC: LABBT 11:18
PROVIDERS: ATTEND Surgery
DX: Z01.812 Encounter for preprocedural laboratory examination (principal); K43.2 Incisional hernia without obstruction or gangrene
CPT/HCPCS: 80048; 85025

== ENCOUNTER 2021-01-28 10:12 | Day surgery (SDC) | payer BC ==
[2021-01-27 11:10] VITALS: BMI 46.1
[2021-01-28] MEDS ORDERED: Bupivacaine 0.25% HCL 30 ML VIAL ONE (12:39)
[2021-01-28] MEDS ORDERED: Lidocaine 1% w/Epinephrine 1:100K 20 ML VIAL ONE (12:39)
[2021-01-28] MEDS ORDERED: Fentanyl 250 MCG/5 ML VIAL ONE (12:44)
[2021-01-28] MEDS ORDERED: Dexamethasone 20 MG/5 ML VIAL ONE (13:03)
[2021-01-28] MEDS ORDERED: Lidocaine 1% PF 5 ML VIAL ONE (13:03)
[2021-01-28] MEDS ORDERED: Ketorolac Tromethamine 30 MG/ML VIAL ONE (13:03)
[2021-01-28] MEDS ORDERED: Glycopyrrolate 0.2 MG/ML 5 ML SYRINGE ONE (13:03)
[2021-01-28] MEDS ORDERED: Ondansetron PF 4 MG/2 ML Vial ONE (13:03)
[2021-01-28] MEDS ORDERED: Rocuronium Bromide 10 MG/ML (10ML VIAL) ONE (13:03)
[2021-01-28] MEDS ORDERED: PROPOFOL 200 MG/20 ML VIAL ONE (13:03)
[2021-01-28] MEDS ORDERED: Fentanyl 100 MCG/2 ML VIAL ONE (15:11)
== END 2021-01-28 17:45 | disposition home or self-care (01) ==
LOC: SDC 10:12
PROVIDERS: ATTEND Surgery
PROC: 0WUF4JZ Supplement Abdominal Wall with Synthetic Substitute, Percutaneous Endoscopic Approach (ICD-10-PCS; principal; 2021-01-28)
DX: K43.2 Incisional hernia without obstruction or gangrene (principal); K66.0 Peritoneal adhesions (postprocedural) (postinfection); I10 Essential (primary) hypertension; G47.33 Obstructive sleep apnea (adult) (pediatric); E66.01 Morbid (severe) obesity due to excess calories; Z68.42 Body mass index [BMI] 45.0-49.9, adult; Z88.5 Allergy status to narcotic agent; Z87.19 Personal history of other diseases of the digestive system; Z98.890 Other specified postprocedural states; Z86.711 Personal history of pulmonary embolism; Z79.01 Long term (current) use of anticoagulants
CPT/HCPCS: C1781; J0690; J1100; J1885; J2405; J2704; J3010; S0020

== ENCOUNTER 2022-05-21 16:04 | Outpatient (CLI) | payer BC ==
[2022-05-21 17:22] LABS: Mean Corpuscular HGB CONC 34.4 g/dL (32.0-36.0); Mean Corpuscular Hemoglobin 30.5 pg (27.0-33.0); Mean Corpuscular Volume 88.7 fl (81.2-95.1); Mean Platelet Volume 9.3 fl (7.4-10.4); Platelet Count 294 10x3/uL (150-450); Red Blood Cell (RBC) Count 4.59 10x6/uL (4.32-5.72); White Blood Cell (WBC) Count 9.3 10x3/uL (3.5-10.5)
== END 2022-05-21 16:05 | disposition home or self-care (01) ==
LOC: LABBT 16:04
PROVIDERS: ATTEND Surgery
DX: Z01.812 Encounter for preprocedural laboratory examination (principal); K43.2 Incisional hernia without obstruction or gangrene
CPT/HCPCS: 85027

== ENCOUNTER 2022-05-26 06:03 | Day surgery (SDC) | payer BC ==
[2022-05-25 13:05] VITALS: BMI 49.4
[2022-05-26] MEDS ORDERED: SUGAMMADEX SODIUM 200 MG/2 ML VIAL ONE (06:15)
[2022-05-26] MEDS ORDERED: PROPOFOL 0 ML ONE (06:15)
[2022-05-26] MEDS ORDERED: Ketamine 50 MG/ML (10ML VIAL) ONE (06:15)
[2022-05-26] MEDS ORDERED: fentaNYL Citrate/PF 100 MCG/2 ML SYRINGE ONE ×2 (06:15→08:43)
[2022-05-26] MEDS ORDERED: PROPOFOL 20 ML ONE (06:16)
[2022-05-26] MEDS ORDERED: Albuterol Sulfate HFA (OR ONLY) ONE (06:38)
[2022-05-26] MEDS ORDERED: Bupivacaine 0.25% HCL 30 ML VIAL ONE (08:22)
[2022-05-26] MEDS ORDERED: EPINEPHrine 1 MG/ML AMP ONE (08:22)
[2022-05-26] MEDS ORDERED: CEFAZOLIN 2 GM VIAL ONE (08:37)
[2022-05-26] MEDS ORDERED: Sodium Chloride 0.9% 100 ML ONE (08:37)
[2022-05-26] MEDS ORDERED: Ketorolac Tromethamine 30 MG/ML VIAL ONE (08:51)
[2022-05-26] MEDS ORDERED: PROPOFOL 200 MG/20 ML VIAL ONE (08:51)
[2022-05-26] MEDS ORDERED: Rocuronium Bromide 10 MG/ML (10ML VIAL) ONE (08:51)
[2022-05-26] MEDS ORDERED: Dexamethasone 20 MG/5 ML VIAL ONE (08:51)
[2022-05-26] MEDS ORDERED: Ondansetron PF 4 MG/2 ML Vial ONE (08:51)
== END 2022-05-26 12:15 | disposition home or self-care (01) ==
LOC: SDC 06:03
PROVIDERS: ATTEND Surgery
PROC: 8E0W4CZ Robotic Assisted Procedure of Trunk Region, Percutaneous Endoscopic Approach (ICD-10-PCS; principal; 2022-05-26)
PROC: 0WUF4JZ Supplement Abdominal Wall with Synthetic Substitute, Percutaneous Endoscopic Approach (ICD-10-PCS; principal; 2022-05-26)
DX: K43.2 Incisional hernia without obstruction or gangrene (principal); Z79.01 Long term (current) use of anticoagulants; Z88.5 Allergy status to narcotic agent
CPT/HCPCS: C1713; J0171; J1100; J1885; J2405; J2704; J3490; S0020

== ENCOUNTER 2023-06-09 15:10 | Outpatient (CLI) | payer BC | END 2023-06-09 15:11 | disposition home or self-care (01) | LOC: BICRAD 15:10 | PROVIDERS: ATTEND Family Medicine | DX: M54.50 Low back pain, unspecified (principal); M47.816 Spondylosis without myelopathy or radiculopathy, lumbar region; M43.17 Spondylolisthesis, lumbosacral region | CPT/HCPCS: 72100 ==